=== PATIENT | female | born 1960 | race Caucasian/White ===

== ENCOUNTER 2017-11-15 11:39 | Observation (INO) | payer OTHER ==
[2017-11-15] MEDS: ASPIRIN 325 MG TAB PO (12:46)
[2017-11-15 13:03] LABS: ADD MAN DIFF? NO
[2017-11-15 13:05] LABS: BASOPHILS % 0.6 % (0.0-2.0); EOSINOPHILS # 0.2 10^3/ul (0.0-0.5); EOSINOPHILS % 2.4 % (0.0-7.0); HEMATOCRIT 35.9 % (37.0-47.0); HEMOGLOBIN 11.8 g/dl (12.0-16.0); LYMPHOCYTES # 2.1 10^3/ul (0.8-2.9); LYMPHOCYTES % 29.3 % (15.0-51.0); MEAN CORPUSCULAR HEMOGLOBIN 29.9 pg (29.0-33.0); MEAN CORPUSCULAR HGB CONC 32.9 g/dl (32.0-37.0); MEAN CORPUSCULAR VOLUME 90.9 fl (82.0-101.0); MEAN PLATELET VOLUME 8.8 fl (7.4-10.4); MONOCYTE # 0.5 10^3/ul (0.3-0.9); MONOCYTES % 7.7 % (0.0-11.0); NEUTROPHIL # 4.2 10^3/ul (1.6-7.5); NEUTROPHILS % 59.7 % (39.0-77.0); PLATELET COUNT 268 10^3/UL (140-415); RED BLOOD COUNT 3.95 10^6/ul (4.20-5.40); RED CELL DISTRIBUTION WIDTH 12.8 % (11.5-14.5)
[2017-11-15 13:24] LABS: ANION GAP 10 (8-16); BLOOD UREA NITROGEN 12 mg/dl (7-20); CALCIUM 9.1 mg/dl (8.4-10.2); CARBON DIOXIDE 28 mmol/L (21-31); CHLORIDE 106 mmol/L (97-110); CREATININE 0.67 mg/dl (0.44-1.00); GLUCOSE 96 mg/dl (70-220); POTASSIUM 3.6 mmol/L (3.5-5.1); SODIUM 140 mmol/L (135-144)
[2017-11-15 13:35] LABS: TROPONIN-I < 0.010 ng/ml (0.000-0.120)
[2017-11-15] MEDS ORDERED: ACETAMINOPHEN 325 MG TAB PO ×2 (14:30→15:00)
[2017-11-15] MEDS ORDERED: ONDANSETRON 4 MG INJ IV ×2 (14:30→15:00)
[2017-11-15] MEDS ORDERED: morphine 2 MG INJ IV (15:00)
[2017-11-15] MEDS ORDERED: ALBUTEROL/IPRATROPIUM (NEB) 3 ML AMP HHN (15:00)
[2017-11-15] MEDS ORDERED: NA PHOSPHATE/BIPHOS 133 ML ENEMA PR (15:00)
[2017-11-15] MEDS ORDERED: DOCUSATE SODIUM 100 MG CAP PO (15:00)
[2017-11-15] MEDS ORDERED: HYDROCODONE/APAP (5/325) TAB PO (15:00)
[2017-11-15] MEDS ORDERED: hydrALAzine 20 MG INJ IV (15:00)
[2017-11-15] MEDS ORDERED: NITROGLYCERIN (SL) 0.4 MG TAB SL (15:00)
[2017-11-15] MEDS ORDERED: NACL 0.9% 3 ML SYG IV (15:00)
[2017-11-15] MEDS ORDERED: LORAZEPAM 2 MG INJ IV (15:00)
[2017-11-15] MEDS ORDERED: MAGNESIUM HYDROXIDE 30ML CUP PO (15:00)
[2017-11-15 15:14] LABS: FREE T4 (FREE THYROXINE) 0.93 ng/dl (0.64-1.79)
[2017-11-15] MEDS: SOD CHLORIDE 0.45% 1,000 ML IV (16:34)
[2017-11-15 18:15] LABS: CREATINE KINASE 67 IU/L (23-200)
[2017-11-15 18:25] LABS: CK INDEX 0.4
[2017-11-15 18:27] LABS: TROPONIN-I < 0.010 ng/ml (0.000-0.120)
[2017-11-15 18:33] LABS: CK-MB 0.25 ng/ml (0.0-2.4)
[2017-11-15] MEDS: HEPARIN 5,000 UNIT/0.5 ML VIAL SC (22:15)
[2017-11-16 01:45] LABS: CREATINE KINASE 55 IU/L (23-200)
[2017-11-16 01:56] LABS: CK INDEX 0.4; CK-MB < 0.22 ng/ml (0.0-2.4); TROPONIN-I < 0.010 ng/ml (0.000-0.120)
[2017-11-16] MEDS: SOD CHLORIDE 0.45% 1,000 ML IV (07:09)
[2017-11-16 07:50] LABS: ADD MAN DIFF? NO
[2017-11-16 08:02] LABS: BASOPHILS % 0.8 % (0.0-2.0); EOSINOPHILS # 0.2 10^3/ul (0.0-0.5); EOSINOPHILS % 3.7 % (0.0-7.0); HEMATOCRIT 37.4 % (37.0-47.0); HEMOGLOBIN 12.3 g/dl (12.0-16.0); LYMPHOCYTES # 1.5 10^3/ul (0.8-2.9); LYMPHOCYTES % 29.5 % (15.0-51.0); MEAN CORPUSCULAR HEMOGLOBIN 29.7 pg (29.0-33.0); MEAN CORPUSCULAR HGB CONC 32.9 g/dl (32.0-37.0); MEAN CORPUSCULAR VOLUME 90.3 fl (82.0-101.0); MONOCYTE # 0.3 10^3/ul (0.3-0.9); MONOCYTES % 5.3 % (0.0-11.0); NEUTROPHIL # 3.1 10^3/ul (1.6-7.5); NEUTROPHILS % 60.5 % (39.0-77.0); PLATELET COUNT 250 10^3/UL (140-415); RED BLOOD COUNT 4.14 10^6/ul (4.20-5.40); RED CELL DISTRIBUTION WIDTH 12.8 % (11.5-14.5)
[2017-11-16 08:02] LABS: WHITE BLOOD COUNT 5.1 10^3/ul (4.8-10.8)
[2017-11-16 08:09] LABS: HEMOGLOBIN A1C 5.9 % (0-5.9)
[2017-11-16 08:21] LABS: CHOLESTEROL 164 mg/dl (100-200)
[2017-11-16 08:21] LABS: CHOL/HDL RATIO 3.9 RATIO; HDL CHOLESTEROL 42 mg/dl (37-92); LDL CHOLESTEROL,CALCULATED 99 mg/dl; TRIGLYCERIDES 117 mg/dl (0-149)
[2017-11-16] MEDS: HEPARIN 5,000 UNIT/0.5 ML VIAL SC (08:23)
[2017-11-16 08:26] LABS: ANION GAP 12 (8-16); BLOOD UREA NITROGEN 12 mg/dl (7-20); CARBON DIOXIDE 26 mmol/L (21-31); CHLORIDE 108 mmol/L (97-110); CREATININE 0.63 mg/dl (0.44-1.00); GLUCOSE 100 mg/dl (70-220); MAGNESIUM 1.9 mg/dl (1.7-2.5); PHOSPHORUS 3.6 mg/dl (2.5-4.9); POTASSIUM 3.9 mmol/L (3.5-5.1); SODIUM 142 mmol/L (135-144)
[2017-11-16] MEDS: ASPIRIN (EC) 325 MG TAB PO (10:08)
[2017-11-16] MEDS: REGADENOSON 0.4 MG/5 ML SYG (16:06)
== END 2017-11-16 18:40 | disposition home or self-care (01) ==
LOC: E/R 11:39 → TEL 14:18
DX: R07.89 Other chest pain (principal); I10 Essential (primary) hypertension; R00.1 Bradycardia, unspecified
CPT/HCPCS: 36415; 71045; 78452; 80048; 80061; 82550; 82553; 83036; 83735; 84100; 84439; 84443; 84484; 85025; 93005; 93017; 93306; 99217; 99285-25; G0378